=== PATIENT | female | born 1980 | race Caucasian/White ===

== ENCOUNTER → 2017-11-12 09:10 | Outpatient (CLI) | payer OTHER, SELFPAY ==
[2017-11-12 11:44] LABS: Free T3 2.9 pg/mL (2.18-3.98); Thyroid Stim Hormone (TSH) 2.52 uIU/mL (0.358-3.74)
[2017-11-15 13:11] LABS: Thyroid Peroxidase AB 8 IU/mL (0-34)
[2017-11-19 12:05] LABS: HPV Reflexed? NOT INDICATED
== END ==
PROVIDERS: Visit Provider Obstetrics & Gynecology
DX: Z12.4 Encounter for screening for malignant neoplasm of cervix (principal); R63.5 Abnormal weight gain
CPT/HCPCS: 36415; 84443; 84481; 86376; 88175; G0145

== ENCOUNTER → 2018-12-09 10:24 | Outpatient (CLI) | payer OTHER, SELFPAY ==
[2014-09-07 23:10] VITALS: BMI 32.4
== END ==
PROVIDERS: Visit Provider Obstetrics & Gynecology
DX: Z12.4 Encounter for screening for malignant neoplasm of cervix (principal)

== ENCOUNTER 2020-06-27 14:14 | Outpatient (RCR) | payer OTHER, SELFPAY ==
[2014-09-07 23:10] VITALS: BMI 32.4
== END 2020-08-20 23:59 ==
LOC: IMMUN 14:14
PROVIDERS: PCP Student in an Organized Health Care Education/Training Program; Visit Provider Family Medicine
DX: Z23 Encounter for immunization (principal)
CPT/HCPCS: 0001A; 0002A; 91300

== ENCOUNTER 2021-04-07 14:21 | Outpatient (CLI) | payer OTHER, SELFPAY ==
[2021-04-11 18:59] LABS: HPV APTIMA, High Risk Negative (Negative)
== END 2021-04-07 23:59 | disposition short-term general hospital (02) ==
LOC: LABSPEC 14:26
PROVIDERS: PCP Student in an Organized Health Care Education/Training Program; Visit Provider Student in an Organized Health Care Education/Training Program
DX: Z12.4 Encounter for screening for malignant neoplasm of cervix (principal)
CPT/HCPCS: 87624; 88175; G0145

== ENCOUNTER → 2022-04-27 | Outpatient (CLI) | payer OTHER, SELFPAY ==
[2022-05-02 22:18] LABS: HPV APTIMA, High Risk Negative (Negative)
== END | disposition home or self-care (01) ==
LOC: WOBLAB 09:56
PROVIDERS: PCP Student in an Organized Health Care Education/Training Program; Visit Provider Student in an Organized Health Care Education/Training Program
DX: Z12.4 Encounter for screening for malignant neoplasm of cervix (principal)
CPT/HCPCS: 87624; 88175; G0145

== ENCOUNTER → 2024-12-07 | Outpatient (CLI) | payer SELFPAY ==
--- NOTE | 2024-12-07 13:48 | CT_ITS ---
PROCEDURE: LIMITED CHEST CT CARDIAC ONLY 12/07/2024 REASON FOR EXAM: SCREEN TECHNIQUE: Procedure Code: [id number] Modality: CT Procedure: LIMITED CHEST CT CARDIAC ONLY One or more dose reduction techniques were used (e.g., Automated exposure control, adjustment of the mA and/or kV according to patient size, use of iterative reconstruction technique). RADIATION DOSE SUMMARY: CTDlvol: 12.19 mGy DLP: 195.04 mGycm COMPARISON: None. CT/Limited Chest CT Cardiac Only IMPRESSION: Limited imaging of the lungs demonstrates no acute process. No pleural effusion or pneumothorax is seen in visualized areas. No adenopathy is noted. The visualized upper abdomen demonstrates no significant abnormality. Reading Location: [id number]
--- NOTE | 2024-12-08 08:29 | CA.SCORE ---
Calcium Scoring Date of Study:: 12/07/24 Indications Indications: Screening Coronary Calcium Scoring: High-resolution Computed Tomographic imaging of the chest was performed on [12/07/2024], with particular attention paid to the coronary arteries. Images from the examination were analyzed for the presence and extent of coronary artery calcification , using coronary calcium quantification software. The patient tolerated the procedure well and there were no complications. The results of the coronary calcification analysis are provided below. Findings Coronary Artery Left Main (LM): 0 Left Anterior Descending (LAD): 0 Left Circumflex (LCX): 0 Right Coronary Artery (RCA): 0 Total Agatston Score: 0 Percentile Rankinth Calcium Scoring Interpretation: Different methods to categorize the overall amount of coronary plaque. Overall amount CAC SIS Visual of coronary plaque P1 Mild -100 <2 1-2 vessels with mild amount of plaque P2 Moderate 101-300 3-4 1-2 vessels with moderate amount, 3 vessels with mild amount of plaque P3 Severe 301-999 5-7 3 vessels with moderate amount, 1 vessel with severe amount of plaque P4 Extensive >1000 >8 2-3 vessels with severe amount of plaque Conclusion: No atherosclerotic plaquing.
== END | disposition home or self-care (01) ==
LOC: CT 13:45
PROVIDERS: PCP Student in an Organized Health Care Education/Training Program; Referring Provider Student in an Organized Health Care Education/Training Program; Visit Provider Student in an Organized Health Care Education/Training Program
DX: Z13.6 Encounter for screening for cardiovascular disorders (principal)
CPT/HCPCS: 75571; 76380